=== PATIENT | female | born 1940 | race Caucasian/White ===

== ENCOUNTER 2020-04-12 11:40 | Observation (INO) ==
--- NOTE | 2020-04-12 12:18 | Emergency Department Note ---
History of Present Illness General Chief complaint: Weakness Stated complaint: NUMBNESS ON RIGHT SIDE/WEAKNESS Time Seen by Provider: 04/12/20 11:56 Source: patient and family Mode of arrival: ambulatory Limitations: no limitations History of Present Illness This pa patient comes in by private vehicle after complaining of numbness on her right side. She is very vague about her symptoms about when they started and what symptoms she has now. She seems to be feeling better than she did this morning. She thinks she may have had some symptoms yesterday but really noticed it today between 7 and 8:00 in the morning. She felt numb it seems on her right side on the face and the arm and possibly the leg as well. She has not been ill lately. No fever or chills. No exposure to hardy. No cough or shortness of breath. No nausea vomiting or diarrhea. No fall or trauma. No headache. She is on no blood thinners. She had no trouble speaking or swallowing. Questionable slight vision change in the right eye. She is normally very active and lives independently by herself and came in from home. No palpitations or syncope. Home Medications Home Medications Medication Instructions Recorded Confirmed Type amlodipine 5 mg PO DAILY 04/12/20 04/12/20 History Allergies Allergy/AdvReac Type Severity Reaction Status Date / Time No Known Allergies Allergy Verified 04/12/20 13:00 Past Med/Surg History Medical History (Updated 04/12/20 @ 19:09 by Avila Eckert MD) Hypertension Social History Smoking Status: Never smoker Hx Alcohol Use: No Hx Substance Use: No Preferred Language: Singaporean Communication Ability: Effective Configuration Engineer Required: No Beliefs That Will Affect Care: None Current Living Situation: Alone Other Information That Helps Us Care for You: No Feels Safe at Home: Yes Safety Concerns: Feels Safe At This Time Assistive Devices: None Immunizations: Past medical historydenies diabetes cardiac disease or stroke. No blood thinners. Allergies- denies any allergies Social historylives alone. Does not smoke. Review of Systems A total of 10 systems reviewed and were otherwise negative Physical Exam Vital Signs Vital Signs - 24 hr 04/12/20 11:43 04/12/20 11:47 04/12/20 12:00 Temperature 37.4 C Temperature Source Oral Pulse Rate 78 Pulse Rate [Apical] 78 Pulse Rate from SpO2 Sensor Pulse Rhythm Regular Pulse Rhythm [Apical] Regular Pulse Strength Normal Respiratory Rate 20 16 Respiratory Effort / Characteristics Non-Labored Spontaneous Non-Labored Respiratory Depth Normal Normal Respiratory Pattern Regular Blood Pressure 169/77 H Blood Pressure [Left Arm] 145/84 H Blood Pressure Mean 107 Blood Pressure Mean [Left Arm] 104 Blood Pressure Position [Left Arm] Pulse Oximetry 96 95 96 Oxygen Delivery Method Room Air Room Air Room Air Sepsis Recent Fever Within 48 Hours No Sepsis New/Unexplained Change in Mental Status N/A Sepsis Action Taken by Nursing No Action Required 04/12/20 12:35 04/12/20 12:47 04/12/20 12:49 Temperature Temperature Source Pulse Rate 87 79 83 Pulse Rate [Apical] 79 Pulse Rate from SpO2 Sensor 79 82 Pulse Rhythm Pulse Rhythm [Apical] Regular Pulse Strength Respiratory Rate 20 13 20 Respiratory Effort / Characteristics Non-Labored Spontaneous Respiratory Depth Normal Respiratory Pattern Regular Blood Pressure 143/105 H 162/79 H Blood Pressure [Left Arm] 143/105 H Blood Pressure Mean 111 101 Blood Pressure Mean [Left Arm] 117 Blood Pressure Position [Left Arm] Sitting Pulse Oximetry 97 94 96 Oxygen Delivery Method Room Air Room Air Room Air Sepsis Recent Fever Within 48 Hours Sepsis New/Unexplained Change in Mental Status Sepsis Action Taken by Nursing 04/12/20 13:00 04/12/20 13:15 04/12/20 13:30 Temperature Temperature Source Pulse Rate 81 73 76 Pulse Rate [Apical] Pulse Rate from SpO2 Sensor 80 73 76 Pulse Rhythm Pulse Rhythm [Apical] Pulse Strength Respiratory Rate 19 16 17 Respiratory Effort / Characteristics Respiratory Depth Respiratory Pattern Blood Pressure 148/86 H 150/85 H Blood Pressure [Left Arm] Blood Pressure Mean 101 106 Blood Pressure Mean [Left Arm] Blood Pressure Position [Left Arm] Pulse Oximetry 96 98 98 Oxygen Delivery Method Room Air Room Air Room Air Sepsis Recent Fever Within 48 Hours Sepsis New/Unexplained Change in Mental Status Sepsis Action Taken by Nursing 04/12/20 13:45 04/12/20 14:01 04/12/20 14:15 Temperature Temperature Source Pulse Rate 73 75 74 Pulse Rate [Apical] Pulse Rate from SpO2 Sensor 73 73 74 Pulse Rhythm Pulse Rhythm [Apical] Pulse Strength Respiratory Rate 17 21 15 Respiratory Effort / Characteristics Respiratory Depth Respiratory Pattern Blood Pressure 194/70 H Blood Pressure [Left Arm] Blood Pressure Mean 127 Blood Pressure Mean [Left Arm] Blood Pressure Position [Left Arm] Pulse Oximetry 95 91 95 Oxygen Delivery Method Room Air Room Air Room Air Sepsis Recent Fever Within 48 Hours Sepsis New/Unexplained Change in Mental Status Sepsis Action Taken by Nursing 04/12/20 14:30 04/12/20 14:45 Temperature Temperature Source Pulse Rate 76 75 Pulse Rate [Apical] Pulse Rate from SpO2 Sensor 74 Pulse Rhythm Pulse Rhythm [Apical] Pulse Strength Respiratory Rate 19 16 Respiratory Effort / Characteristics Respiratory Depth Respiratory Pattern Blood Pressure 158/92 H Blood Pressure [Left Arm] Blood Pressure Mean 118 Blood Pressure Mean [Left Arm] Blood Pressure Position [Left Arm] Pulse Oximetry 96 Oxygen Delivery Method Room Air Room Air Sepsis Recent Fever Within 48 Hours Sepsis New/Unexplained Change in Mental Status Sepsis Action Taken by Nursing General: Well developed well nourished older female who appears in no acute distress, breathing comfortably on room air. Normal speech. Alert and orient x3. HEENT: Normal cephalic atraumatic. Pupils are equal round and reactive to light. Extraocular movements are intact. Oropharynx is pink with moist mucous membranes. No swelling of the mouth lips or tongue. Neck: Supple with a midline trachea. No meningeal signs or stiffness, no JVD or bruits. No Stridor. Chest: Clear to auscultation bilaterally. No wheezes or rhonchi. No increased work of breathing. Heart: Regular rate and rhythm without murmurs or gallops. Abdomen: Soft nontender, nondistended without rebound guarding or rigidity. Extremities: No cyanosis clubbing or edema. No calf tenderness or assymetry Spine/Back. Non tender to palpation. No CVA tenderness Skin: Good turgor without rashes. Neurologic exam: Cranial nerves two through 12 are intact. Motor and sensation are intact and symmetrical throughout. Questionable decreased sensation in the right arm compared to the left. She says it feels a little bit different she thinks. The face and leg she says feel the same to light touch. No pronator drift. No tremor. No facial asymmetry or droop. No difficulty speaking or swallowing Course Administered Medications Discontinued Medications Aspirin (Aspirin 81 Mg Chew) 324 mg PO NOW STA Stop: 04/12/20 13:05 Last Admin: 04/12/20 13:34 Dose: 324 mg Documented by: [id number] Ioversol (Optiray 320 125ml) 120 ml IV ONCE ONE Stop: 04/12/20 12:24 Last Admin: 04/12/20 12:23 Dose: 120 ml Documented by: [id number] Medical Decision Making Differential Diagnosis Stroke, TIA, intracranial process, electrolyte or metabolic abnormality, infection, cardiac disease, arrhythmia Medical Records Attestation: I reviewed the patient's medical records. Home Medications Current Medication List: was personally reviewed by me Laboratory Data Attestation: I reviewed the patient's lab results. Result diagrams: 04/12/20 12:15 04/12/20 12:15 Lab Results 04/12/20 04/12/20 04/12/20 Range/Units 12:15 12:15 12:15 WBC 7.19 (4.8-10.8) K/uL RBC 5.27 (4.2-5.4) M/uL Hgb 15.6 (12.0-16.0) g/dL Hct 47.1 H (37-47) % MCV 89.4 (80-100) fL MCH 29.6 (25-34) pg MCHC 33.1 (32-36) g/dL RDW Std Deviation 47.0 H (36.4-46.3) fL RDW Coeff of Shu 14.4 (11.5-14.5) % Plt Count 351 (130-400) K/uL MPV 9.6 (7.4-10.4) fL Immature Gran % (Auto) 0.3 % Neut % (Auto) 74.1 % Lymph % (Auto) 13.5 % [place] % (Auto) 10.4 % Eos % (Auto) 1.3 % Baso % (Auto) 0.4 % Neut # (Auto) 5.33 (1.4-6.5) K/uL Lymph # (Auto) 0.97 L (1.2-3.4) K/uL [place] # (Auto) 0.75 H (0.11-0.59) K/uL Eos # (Auto) 0.09 (0-0.5) K/uL Baso # (Auto) 0.03 (0-0.2) K/uL Immature Gran # (Auto) 0.02 (0.00-0.02) K/uL PT 10.5 (9.0-12.0) Seconds INR 1.0 (0.9-1.1) APTT 27.2 (21.0-31.0) Seconds PTT Ratio 1.0 Sodium 139 (136-145) mmol/L Potassium 4.2 (3.5-5.1) mmol/L Chloride 108 H (98-107) mmol/L Carbon Dioxide 25 (21-32) mmol/L Anion Gap 6.0 (3-11) BUN 13 (7-18) mg/dl Creatinine 0.98 (0.6-1.2) mg/dl Est Cr Clr Drug Dosing 42.8 ml/min Est GFR ( Amer) 63.1 Est GFR (Non-Af Amer) 54.5 BUN/Creatinine Ratio 13.2 (10-20) Glucose 101 H (70-99) mg/dl Calcium 9.6 (8.5-10.1) mg/dl Magnesium 2.4 (1.8-2.4) mg/dl Total Bilirubin 0.6 (0.2-1) mg/dl AST 19 (15-37) U/L ALT 18 (12-78) U/L Alkaline Phosphatase 66 (45-117) U/L Troponin I < 0.015 (0-0.045) ng/ml Total Protein 7.7 (6.4-8.2) gm/dl Albumin 3.7 (3.4-5.0) gm/dl Globulin 4.0 (2.5-4.0) gm/dl Albumin/Globulin Ratio 0.9 (0.9-2) Imaging Data Radiologist's Impression: CT head/brain wo con CLINICAL HISTORY: Stroke evaluation COMPARISON STUDY: No previous studies for comparison. TECHNIQUE: Axial CT of the brain is performed from the vertex to the skull base. IV contrast was not administered for this examination. A dose lowering technique was utilized adhering to the principles of ALARA. CT DOSE: FINDINGS: No intra or extra-axial mass lesions are visualized. There is no CT evidence of acute cortical infarction. There is no evidence of midline shift. There is no acute hemorrhage. No calvarial fractures are visualized. There are patchy white matter hypodensities likely on a small vessel basis. There is no evidence of pathologic ventricular dilatation. There is no evidence of acute sinusitis IMPRESSION: No acute intracranial findings CT angio neck with con CLINICAL HISTORY: 80 years-old Female with Stroke evaluation. Acute strokelike symptoms COMPARISON STUDY: Head CT and CTA head of same day TECHNIQUE: Following the IV administration of 1 20 mL of Optiray 320, CT angiogram of the neck was performed from the aortic arch to the skull base. Images are reviewed in the axial, sagittal, and coronal planes. 3-D MIPS images are created and assessed. IV contrast was administered without complication. All measurements were calculated based on NASCET criteria. A dose lowering t echnique was utilized adhering to the principles of ALARA. FINDINGS: The imaged opacified pulmonary artery is unremarkable. Three-vessel morphology of the thoracic aortic arch. Common and internal carotid arteries are patent. There is minimal mixed plaque of the carotid bulbs. Dominant left vertebral artery. Bilateral vertebral arteries are patent. There is no aneurysm, dissection, high-grade stenosis or proximal branch occlusion. Clear lung apices. No pneumothorax. Multinodular thyroid. No adenopathy. Mild polypoid mucosal thickening of the right maxillary sinus. Multilevel degenerative changes of the spine. Unerupted left maxillary molar. IMPRESSION:Unremarkable CTA of the neck. CT angio head w con CLINICAL HISTORY: Stroke evaluation TECHNIQUE: CT angiography of the head was performed in a dynamic helical fashion during intravenous administration of 120 cc of Optiray 320. MIP imaging was performed. A dose lowering technique was utilized adhering to the principles of ALARA. CT DOSE: 1139.79 mGy.cm COMPARISON STUDY: No previous studies for comparison. FINDINGS: There are no lesion suspicious for aneurysm. There are no major intracranial branch occlusions. The dural venous sinuses appear patent. There is mild narrowing of the distal basilar artery. There are areas of mild vascular narrowing involving the anterior cerebral artery. IMPRESSION: 1. Mild intracranial atherosclerotic change 2. No evidence of major intracranial branch occlusion 3. No evidence of aneurysm ECG Data Attestation: I personally reviewed and interpreted this ECG as follows: Indication: + weakness Rate (beats per minute): 78 Rhythm: + normal sinus ECG Intervals/blocks: + Normal QRS, + Normal QT and + Normal NC ECG [place]: + Normal ECG ST segments: + Normal ST segments ECG Findings: no PACs and no PVCs Comparison ECG Date: no prior available MDM Narrative This patient comes in as described above. She was placed on a monitor technician in room B 11. Based on her symptoms I did call a stroke alert. Her last known well is very vague but it sounds like it was 7 or 8:00 this morning although she seems to be getting better and also had some vague symptoms yesterday. I do not think she is likely a TPA candidate given her mild symptoms now but I wanted to expedite her care in case we saw anything that she could be intervened on otherwise or her symptoms got worse. IV access was established, EKG was obtained, neuroimaging was obtained and she was reassessed frequently. She does seem to have a vision deficit on the right. CAT scan of the head as well as CT of the head and neck were unremarkable. The patient was given aspirin 324 mg chewable. EKG was unremarkable. Blood testing was unremarkable is no significant lecture light or metabolic abnormalities. The stroke neurologist Dr. Elizabeth did evaluate her and does not feel she is a TPA or intervention candidate at this point. The patient will need to be admitted for further stroke work-up as I am concerned that she did have a stroke likely. She will likely need MRI and further work-up. [facility]. Continuous cardiac monitoring: An order was placed in the EMR for continuous cardiac monitoring. She was noted to be in normal sinus rhythm with a pulse of 75. Impression & Plan Stroke-like symptoms, Visual changes, Numbness on right side, Hypertension Discharge Plan Visit Data Chief Complaint: Weakness Stated Complaint: NUMBNESS ON RIGHT SIDE/WEAKNESS ED Provider: Avila Eckert Discharge Problem: Stroke-like symptoms, Visual changes, Numbness on right side, Hypertension Patient Disposition: Admitted As Inpatient Discharge Instructions Interventions: ED Discharge Assessment Last Done: 04/12/20 16:43 Discharge Problem: Hypertension Qualifiers: Hypertension type: unspecified Qualified Code(s): I10 - Essential (primary) hypertension
[2020-04-12] MEDS ORDERED: OPTIRAY 320 125ml IV ONE (12:23)
[2020-04-12 12:28] LABS: Basophils # (auto) 0.03 K/uL (0-0.2); Basophils % (auto) 0.4 %; Eosinophils # (auto) 0.09 K/uL (0-0.5); Eosinophils % (auto) 1.3 %; Hematocrit (blood only) 47.1 % (37-47); Hemoglobin 15.6 g/dL (12.0-16.0); Immature Granulocytes # (auto) 0.02 K/uL (0.00-0.02); Immature Granulocytes % (auto) 0.3 %; Lymphocytes # (auto) 0.97 K/uL (1.2-3.4); Lymphocytes % (auto) 13.5 %; Mean Corpuscular Hemoglobin 29.6 pg (25-34); Mean Corpuscular Hgb Conc 33.1 g/dL (32-36); Mean Corpuscular Volume 89.4 fL (80-100); Mean Platelet Volume 9.6 fL (7.4-10.4); Monocytes # (auto) 0.75 K/uL (0.11-0.59); Monocytes % (auto) 10.4 %; Neutrophils # (auto) 5.33 K/uL (1.4-6.5); Neutrophils % (auto) 74.1 %; Platelet Count 351 K/uL (130-400); RDW Coefficient of Variation 14.4 % (11.5-14.5); Red Blood Count 5.27 M/uL (4.2-5.4); White Blood Count 7.19 K/uL (4.8-10.8)
--- NOTE | 2020-04-12 12:36 | CT Scan Report ---
CT head/brain wo con CLINICAL HISTORY: Stroke evaluation COMPARISON STUDY: No previous studies for comparison. TECHNIQUE: Axial CT of the brain is performed from the vertex to the skull base. IV contrast was not administered for this examination. A dose lowering technique was utilized adhering to the principles of ALARA. CT DOSE: FINDINGS: No intra or extra-axial mass lesions are visualized. There is no CT evidence of acute cortical infarc tion. There is no evidence of midline shift. There is no acute hemorrhage. No calvarial fractures ar e visualized. There are patchy white matter hypodensities likely on a small vessel basis. There is no evidence of pathologic ventricular dilatation. There is no evidence of acute sinusitis IMPRESSION: No acute intracranial findings ACT 112: Negative or not required by law. Electronically signed by: Bassam Hodges M.D. 04/12/2020 12:35 PM
--- NOTE | 2020-04-12 12:42 | CT Scan Report ---
CT angio head w con CLINICAL HISTORY: Stroke evaluation TECHNIQUE: CT angiography of the head was performed in a dynamic helical fashion during intravenous a dministration of 120 cc of Optiray 320. MIP imaging was performed. A dose lowering technique was util ized adhering to the principles of ALARA. CT DOSE: 1139.79 mGy.cm COMPARISON STUDY: No previous studies for comparison. FINDINGS: There are no lesion suspicious for aneurysm. There are no major intracranial branch occlusi ons. The dural venous sinuses appear patent. There is mild narrowing of the distal basilar artery. Th ere are areas of mild vascular narrowing involving the anterior cerebral artery. IMPRESSION: 1. Mild intracranial atherosclerotic change 2. No evidence of major intracranial branch occlusion 3. No evidence of aneurysm ACT 112: Negative or not required by law. Electronically signed by: Bassam Hodges M.D. 04/12/2020 12:40 PM
--- NOTE | 2020-04-12 12:42 | CT Scan Report ---
CT angio neck with con CLINICAL HISTORY: 80 years-old Female with Stroke evaluation. Acute strokelike symptoms COMPARISON STUDY: Head CT and CTA head of same day TECHNIQUE: Following the IV administration of 1 20 mL of Optiray 320, CT angiogram of the neck was pe rformed from the aortic arch to the skull base. Images are reviewed in the axial, sagittal, and coron al planes. 3-D MIPS images are created and assessed. IV contrast was administered without complicatio n. All measurements were calculated based on NASCET criteria. A dose lowering technique was utilized adhering to the principles of ALARA. FINDINGS: The imaged opacified pulmonary artery is unremarkable. Three-vessel morphology of the thoracic aortic arch. Common and internal carotid arteries are patent. There is minimal mixed plaque of the carotid bulbs. Dominant left vertebral artery. Bilateral vertebral arteries are patent. There is no aneurysm, dissection, high-grade stenosis or proximal branch occlusion. Clear lung apices. No pneumothorax. Multinodular thyroid. No adenopathy. Mild polypoid mucosal thicke rodrigo of the right maxillary sinus. Multilevel degenerative changes of the spine. Unerupted left maxil jamir molar. IMPRESSION:Unremarkable CTA of the neck. ACT 112: Negative or not required by law. The above report was generated using voice recognition software. It may contain grammatical, syntax o r spelling errors. Electronically signed by: Kp Colón M.D. 04/12/2020 12:40 PM
[2020-04-12 12:45] LABS: Partial Thromboplastin Time 27.2 Seconds (21.0-31.0); Prothrombin Time 10.5 Seconds (9.0-12.0)
[2020-04-12 12:51] LABS: Alanine Aminotransferase 18 U/L (12-78); Albumin Level 3.7 gm/dl (3.4-5.0); Aspartate Aminotransferase 19 U/L (15-37); BUN Creatinine Ratio 13.2 (10-20); Blood Urea Nitrogen 13 mg/dl (7-18); Calcium 9.6 mg/dl (8.5-10.1); Carbon Dioxide 25 mmol/L (21-32); Chloride 108 mmol/L (98-107); Creatinine Clr Calc Pharmacy 42.8 ml/min; Est GFR (African American) 63.1; Est GFR (Non-African American) 54.5; Glucose 101 mg/dl (70-99); Magnesium 2.4 mg/dl (1.8-2.4); Potassium 4.2 mmol/L (3.5-5.1); Sodium 139 mmol/L (136-145)
[2020-04-12 12:57] LABS: Albumin Globulin Ratio 0.9 (0.9-2); Alkaline Phosphatase 66 U/L (45-117); Bilirubin,Total 0.6 mg/dl (0.2-1); Total Protein 7.7 gm/dl (6.4-8.2); Troponin I < 0.015 ng/ml (0-0.045)
[2020-04-12] MEDS ORDERED: ASPIRIN 81 MG CHEW PO STA (13:04)
--- NOTE | 2020-04-12 14:23 | History & Physical Report ---
Date of Service April 12, 2020 Assessment & Plan (1) Right homonymous hemianopsia: Stroke work-up Observation status on telemetry to monitor for atrial fibrillation CT head and CTA results as above MRI brain wo contrast TTE Allow permissive hypertension (discontinue amlodipine 5mg PO daily) ASA 324mg PO daily, then 81mg PO daily Given advanced age will defer statin based on MRI and lipid panel results in AM. PT/OT eval and treat Consult neurology (2) Right sided numbness: Now resolved. As above. (3) Hypertension: Hold outpatient amlodipine to allow permissive hypertension as above. (4) DVT prophylaxis: Lovenox 40mg SQ daily Admission and Anticipated Discharge Date Admission Date: 04/12/2020 History of Present Illness Chief Complaint: Right sided weakness, numbness, vision loss. Primary Care Provider: NO PCP Julianne Rodas is an 80 year old female who presents to the ER with right sided numbness, weakness and vision changes. She finds it very difficult to tell me why she came to the ER today. Here with her brother who does not live with her. Her main complaint is "just doesn't feel right". On direct questioning it a ppears she last felt her normal self two days ago. Yesterday she felt something was right but it wasn't bad but is unable to specify what was wrong even on direct questioning. She denies at that point having any nausea, vomiting, pain, dizziness, numbness, weakness, fatigue, vision/speech/hearing changes. Today on waking up she thinks she felt the right side of her body was numb. This started in her hand and she reports long standing carpel tunnel syndrome but this was worse than usual. This numbness then spread to her right leg and face lasting for minutes up to an hour. She reports this has now completely resolved. Possibly she also had some weakness on her right side although she cannot be sure about this. Unable to give any specific times when this occurred. She reports right sided vision loss with her above symptoms but this is slowly improving since coming to the ER. She has never had a stroke before. She reports seeing a PCP approximately 1 month ago due to high BP measurements at home and she was started on a new antihypertensive (amlodipine per outside pharmacy records). She reports feeling worse after taking it, possibly dizzy although unable to describe the actual feeling, therefore stopped taking it after a few days. She started taking it again ?2 weeks ago and the same thing happened so she stopped taking it again. In the ER because of her vague symptoms yesterday and visual deficit she was discussed with telestroke at [facility] and felt not to be a tPA or intervention candidate. Her right sided weakness and numbness had resolved. She was referred to medicine for admission for suspected CVA. Allergies Allergy/AdvReac Type Severity Reaction Status Date / Time No Known Allergies Allergy Verified 04/12/20 13:00 Home Medications Home Medications Medication Instructions Recorded Confirmed Type amlodipine 5 mg PO DAILY 04/12/20 04/12/20 History Past Med/Surg History Medical History Hypertension Surgical History (Updated 04/13/20 @ 08:46 by Kennedy Haro MD) S/P tonsillectomy Status post endoscopic carpal tunnel release Family History (Updated 04/13/20 @ 08:47 by Kennedy Haro MD) Mother , age 83 of a stroke Stroke Diabetes Father , age 72 "black lung" Lung disease Social History Smoking Status: Never smoker Hx Alcohol Use: No Hx Substance Use: No Preferred Language: Hungarian Communication Ability: Effective Admissions Clinician Required: No Beliefs That Will Affect Care: None Current Living Situation: Alone current occupational status: retired Other Information That Helps Us Care for You: No other: 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 Feels Safe at Home: Yes Safety Concerns: Feels Safe At This Time Assistive Devices: None Review of Systems Review of Systems: All systems reviewed & are unremarkable except as noted in HPI & below Physical Exam Constitutional: well developed and well nourished; no acute distress Eyes: PERRL, conjunctivae normal, anicteric sclerae + abnormal visual field confrontation (Complete right sided vision loss with both eyes) ENMT: external ear and nose normal, oropharynx normal Neck: trachea midline, no thyromegaly Respiratory: normal respiratory effort, lungs clear to auscultation Cardiovascular: RRR, no murmur, no edema Gastrointestinal (Abdomen): normal bowel sounds, soft, nontender, no hepatosplenomegaly Musculoskeletal: no cyanosis or clubbing, extremities motor strength 5/5 Skin: no rashes, warm and dry Neurologic: moves all extremities and awake Speech / Cognition: normal speech Motor/Sensory: + pronator drift (very mild right upper extremity increased movement); no tremor and no sensory deficit Cranial Nerves: PERRL (visual carver as above), EOM intact bilaterally, normal facial strength, tongue midline, able to rotate head bilaterally, able to elevate shoulders bilaterally, no nystagmus and symmetric palate elevation Psychiatric: A+Ox3, euthymic affect Lymphatic: no cervical or axillary lymphadenopathy Results & Data Results & Data ([facility]) Vital Signs (Past 12 Hours) Vital Signs Temp Pulse Pulse Resp BP BP Pulse Ox 04/12/20 14:01 75 21 194/70 H 91 04/12/20 13:45 73 17 95 04/12/20 13:30 76 17 150/85 H 98 04/12/20 13:15 73 16 98 04/12/20 13:00 81 19 148/86 H 96 04/12/20 12:49 83 20 96 04/12/20 12:47 79 13 162/79 H 94 04/12/20 12:35 87 79 20 143/105 H 143/105 H 97 04/12/20 12:00 78 16 145/84 H 96 04/12/20 11:47 95 04/12/20 11:43 37.4 C 78 20 169/[address] head/brain wo con IMPRESSION: No acute intracranial findings CT angio head w con IMPRESSION: 1. Mild intracranial atherosclerotic change 2. No evidence of major intracranial branch occlusion 3. No evidence of aneurysm CT angio neck with con IMPRESSION:Unremarkable CTA of the neck. ECG Indication: other (Suspected CVA) Rate (beats per minute): 78 Rhythm: normal sinus Findings: + other (T wave flattening in inferior leads) Comparison ECG Date: no prior available Code Status & VTE Plan Code Status DNR/DNI as discussed with the patient VTE Prophylaxis Plan VTE Prophylaxis will be ordered: Yes PG Care Time/CCT Total # of Minutes Spent Total Time Spent with Patient: Total time spent is greater than 50% in coordination of care (as documented) at patient's floor/unit and/or counseling patient: Coding Level of Care Code 44110 OBS Care - Level 3 Diagnoses Right homonymous hemianopsia H53.461 Right sided numbness R20.0 Hypertension I10 DVT prophylaxis Z29.9
--- NOTE | 2020-04-12 14:37 | Electrocardiogram Report ---
Test Reason : Blood Pressure : / mmHG Vent. Rate : 078 BPM Atrial Rate : 078 BPM P-R Int : 154 ms QRS Dur : 086 ms QT Int : 396 ms P-R-T Axes : 034 033 003 degrees QTc Int : 451 ms Normal sinus rhythm Nonspecific ST and T wave abnormality Inferior leads Abnormal ECG No previous ECGs available Confirmed by Junaid Hernández ([id number]) on 04/12/2020 2:37:03 PM Referred By: Johanna Confirmed By:Junaid Hernández
[2020-04-12] MEDS ORDERED: ONDANSETRON INJ 2 MG/ML 2 ML VIAL IV PRN (17:17)
[2020-04-12] MEDS ORDERED: ALUMINUM/MAGNESIUM SUSP 30 ML UDC PO PRN (17:17)
[2020-04-12] MEDS ORDERED: ACETAMINOPHEN 325 MG TAB PO PRN (17:17)
[2020-04-12] MEDS ORDERED: POLYETHYLENE (MIRALAX) 17 GM PACK PO PRN (17:17)
[2020-04-12] MEDS ORDERED: PHARMACIST DISCHARGE MED REC CONSULT PRN (17:17)
--- NOTE | 2020-04-12 19:22 | Magnetic Resonance Report ---
MRI OF THE BRAIN WITHOUT IV CONTRAST CLINICAL HISTORY: Right homonymous hemianopsia. Right facial numbness. COMPARISON STUDY: CT of the brain dated 04/12/2020. TECHNIQUE: MRI of the brain was performed utilizing various T1 and T2-weighted sequences in the axial , sagittal, and coronal planes. IV contrast was not administered for this examination. FINDINGS: Brain parenchyma: There is restricted diffusion identified in the left occipital cortex consistent wi th acute to subacute ischemia. There are also small foci of restricted diffusion in the left thalamus and the posterior limb of the left internal capsule consistent with acute to subacute lacunar infarc ts. There is age-related involutional change noting [id number] subcortical and periventricular microangiopathic disease. There is no hemorrhage or mass effect. No extra-axial fluid collection is s een. The cerebellar tonsils are normal in configuration. Ventricles, sulci, and cisterns: Prominent secondary to involutional change. Pituitary and sella: Unremarkable. Intracranial vasculature: Normal flow voids are maintained at the skull base. Orbits: The bony orbits are grossly intact. Orbital contents are normal in appearance. Sinuses and mastoids: Mild mucosal thickening is noted in the right maxillary antrum. The remaining p aranasal sinuses and the mastoid air cells are clear. Calvarium: Unremarkable. Cervical cord: Partially visualized cervical spinal cord is normal in morphology and signal intensity . IMPRESSION: 1. There is an acute to subacute left occipital lobe infarct, as well as acute to subacute lacunar in farcts within the left thalamus and the posterior limb of the left internal capsule. 2. There is no hemorrhage or mass effect. ACT 112: Negative or not required by law. Electronically signed by: Trenton Henson M.D. 04/12/2020 7:20 PM
[2020-04-12] MEDS ORDERED: ENOXAPARIN INJ 40 MG/0.4 ML SYR SQ SCH (21:00)
--- NOTE | 2020-04-13 08:17 | XCELERA ---
[id number]
--- NOTE | 2020-04-13 08:44 | Hospitalist Progress Note ---
Date of Service April 13, 2020 Assessment & Plan Admission and Anticipated Discharge Date Admission Date: April 12, 2020 Results & Data Results & Data ([facility]) Vital Signs (Past 12 Hours) Vital Signs Temp Pulse Pulse Resp BP BP Pulse Ox 04/13/20 07:54 36.9 C 56 L 16 154/78 H 94 04/13/20 07:41 64 04/13/20 03:57 36.9 C 69 20 114/61 96 04/13/20 01:27 72 04/12/20 23:05 36.7 C 74 20 153/76 H 94
--- NOTE | 2020-04-13 08:56 | Neurology Consultation ---
Date of Consultation April 13, 2020 Assessment & Plan (1) Acute CVA (cerebrovascular accident): (2) Right sided numbness: (3) Right homonymous hemianopsia: (4) Memory loss, short term: patient had several acute tiny strokes, in the left thalamus, left posterior limb of the internal capsule, and a slightly bigger 1 in the left occipital pole. On presentation she had some right-sided sensory deficits (mostly subjective) and a right homonymous hemianopsia. Today on examination she has no evidence of homonymous hemianopsia, sensory deficit, motor deficit or other focal neurologic finding. She has no meningeal signs or encephalopathy. She does have some mild short-term memory loss , which has been noted as an outpatient. Risk factors for stroke include hypertension and age. she has no history of atrial fibrillation/Flutter. Last night she had a 7 second run of atrial tac hycardia. Echocardiogram was unremarkable. CT angiography of the head and neck were unremarkable without any significant stenoses. She has a dominant left vertebral. The etiology of the stroke is probably embolic given the different vascular distributions. An ischemic stroke cannot be excluded (Given her dominant left vertebral, if she had an episode of hypotension or hypoperfusion this could lead to stroke). Recommendations: 1. Consider further cardiac evaluation for source of embolus including SHANNON. Cardiac event monitor could be considered as well. 2. Increase activity as able and consider physical, occupational, speech therapy consult. 3. the patient needs fasting lipid profile and hemoglobin A1c. 4. Control blood pressure as you are doing, aiming for a mean arterial pressure of 95-100. 5. For now, continue 81 milligram aspirin tablet daily. Consider anticoagulant if there is a source of embolus identified. Overall, I spent a total of 100 minutes with this case including review of records, review of CT and MRI films ( with Dr. Colón), direct evaluation patient at bedside, and discussing the case with the patient at bedside, and Dr. Hernandez including differential diagnosis and treatment options. History of Present Illness Reason for Consultation: Patient is an 80-year-old, who I was asked to see at the request of Dr. Dash, for neurologic consultation regarding stroke. Requesting Physician: Dr. Dash Attending Physician: Toi Hernandez, History of Present Illness patient has a history of hypertension on amlodipine. She has no history of diabetes, dyslipidemia, cardiac disease, or stroke. Patient has primary care visits recently which have suggested some short-term memory problems. Sometime on April 11 she had a relatively brief episode of lightheadedness and really could not give any more specific details regarding this. She did not have pain, weakness, or numbness. She went to bed that evening around 10 o'clock feeling fairly well. She woke up, as usual, around 5 o'clock in the morning feeling her baseline. Sometime later in the morning she had the onset of dysesthesias with numbness and tingling (pins/needles) on her right face, right side, and right leg. These again were very vague and she denied weakness or pain. She had no headache. She did not notice any vision problem. She had no incontinence or urine her balance problems and her mood has been fine. She feels her memory has been fine. She went to the emergency room because of the dysesthesias and not feeling quite well. She arrived to the emergency room at 11:43 with a temperature 37.4, pulse 78, blood pressure 169/77, and O2 saturation 96 percent. Exam reveals some decreased sensation on the right side compared to. Was no mention vision deficits. She was given Lovenox and aspirin. CBC and Chem profile were unremarkable. CT scan of the head was unremarkable. CT angiography of head and neck unremarkable with no significant vascular anomalies or stenoses. MRI of the brain showed a very small /tiny left thalamic and left posterior internal capsule strokes. In addition there was a centimeter sized left o ccipital pole stroke. The strokes were acute /subacute nature. The MRI also showed plom-gx-qwkrduzz old small vessel ischemic changes. Today she says she has no vision problems but still has some vague dysesthesias on the right. She has no pain or weakness. Allergies Allergy/AdvReac Type Severity Reaction Status Date / Time No Known Allergies Allergy Verified 04/12/20 13:00 Home Medications Home Medications Medication Instructions Recorded Confirmed Type amlodipine 5 mg PO DAILY 04/12/20 04/12/20 History Patient History Medical History Hypertension Surgical History S/P tonsillectomy Status post endoscopic carpal tunnel release Family History Mother , age 83 of a stroke Stroke Diabetes Father , age 72 "black lung" Lung disease Social History Smoking Status: Never smoker Hx Alcohol Use: No Hx Substance Use: No Preferred Language: Swedish Communication Ability: Effective Security System Administrator Required: No Beliefs That Will Affect Care: None Current Living Situation: Alone current occupational status: retired Other Information That Helps Us Care for You: No other: retired in her late 30s from working in a [employer] Feels Safe at Home: Yes Safety Concerns: Feels Safe At This Time Assistive Devices: None Review of Systems Constitutional: no fever, no fatigue and no weakness Eyes: no diplopia, no eye pain and no worsening vision Ear, Nose, Mouth, Throat: no ear pain, no tinnitus, no hearing loss, no dizziness, no hoarseness and no dysphagia Respiratory: no cough and no dyspnea Cardiovascular: no chest pain, no palpitations and no lightheadedness Gastrointestinal: no abdominal pain, no nausea and no vomiting Genitourinary: no dysuria, no urinary frequency and no urinary incontinence Musculoskeletal: no back pain, no neck pain, no radicular pain, no joint pain and no myalgia Integumentary: no rash and no lesions Neurologic: + tingling; no gait abnormality, no localized weakness, no generalized weakness, no numbness, no tremor(s), no abnormal movements, no headache(s), no abnormal speech, no confusion and no memory loss Psychiatric: no depression, no irritability, no anxiety, no difficulty concentrating, no confusion and no hallucinations Endocrine: no fatigue and no flushing Hematologic / Lymphatic: no easy bleeding and no easy bruising Allergy / Immunological: no urticaria and no problem reported Exam (Neuro) Physical Exam: The patient is right-handed. The patient is awake, alert, and attentive. Speech is normal without any aphasia or dysarthria. She can name objects, repeat phrases, and has normal spontaneous speech. Mentation and thought processes are intact, with orientation to person, place and time, and normal fund of knowledge. Attention and concentration are normal. Mood and affect are normal and appropriate. General appearance and grooming are normal. her short-term memory was somewhat poor. Her long-term memory was relatively intact. The discs are sharp with positive venous pulsations bilaterally. There are no exudates, hemorrhages, or blood vessel changes seen. Pupils are 4 mm bilaterally and reactive to light. Extraocular eye muscles are intact without nystagmus. Visual acuity and visual carver seem normal grossly to confrontation. I did not detect any visual field defect bilaterally. There are no deficits to sensation in the face in all 3 distributions of the fifth cranial nerve bilaterally. Corneal reflexes are positive bilaterally. Facial strength and symmetry was normal bilaterally. Hearing seems mildly impaired. Palate moves well without asymmetry. There is normal sternocleidomastoid and trapezius (shoulder shrug) strength bilaterally. Tongue is midline with good strength bilaterally. Neck has a full range of motion without discomfort. There are no cervical bruits bilaterally. There are no cranial or ocular bruits. Heart is without murmur. There is a regular rhythm and rate. Cervical, thoracic, and lumbar spine are nontender to palpation. Gait is narrow based, with good arm swing, turns, and stance. Balance is normal eyes open or closed. With outstretched arms there is no drift. There are no resting, postural, or action tremors. There is no ataxia with finger to nose testing. There is good facility in the hands. No other abnormal involuntary movements are noted. Motor strength is 5/5 diffusely in the arms bilaterally including deltoids, biceps, triceps, brachioradialis, wrist flexors and extensors, gi technician, and intrinsic hand muscles. Motor strength is 5/5 diffusely in the legs bilaterally including hip flexors, quadriceps, hamstrings, gastrocnemius, tibialis anterior, tibialis posterior, and Peroneii muscles. Toe extensors are normal and there is good bulk in the extensor digitorum brevis muscles bilaterally. The limbs have good tone without rigidity or spasticity. There is no atrophy noted in the muscles. Muscle bulk is normal, there is no tenderness to palpation, no myotonia to percussion, and no fasciculations seen. Sensory examination is intact to touch and pin throughout all 4 limbs diffusely. Reflexes are 0/4 in the biceps, triceps, brachioradialis, quadriceps, and Achilles tendons bilaterally ( despite reinforcement maneuvers). There is no clonus bilaterally. Toes are downgoing with plantar stimulation bilaterally. Peripheral pulses are present and of normal quality distally in all 4 limbs. There is no peripheral edema noted in the limbs. Results & Data ([facility]) Vital Signs (Past 12 Hours) Vital Signs Temp Pulse Pulse Resp BP BP Pulse Ox 04/13/20 07:54 36.9 C 56 L 16 154/78 H 94 04/13/20 07:41 64 04/13/20 03:57 36.9 C 69 20 114/61 96 04/13/20 01:27 72 04/12/20 23:05 36.7 C 74 20 153/76 H 94 PG Care Time/CCT Total # of Minutes Spent Total Time Spent with Patient: Total time spent is greater than 50% in coordination of care (as documented) at patient's floor/unit and/or counseling patient: Coding Level of Care Code 98183 Initial Inpt Care Lvl 3 Diagnoses Acute CVA (cerebrovascular accident) I63.9 Right sided numbness R20.0 Right homonymous hemianopsia H53.461 Memory loss, short term R41.3 Time Spent (min) 100 Comment Add [id number] to the [id number]
[2020-04-13] MEDS ORDERED: ASPIRIN 81 MG ECTAB PO SCH (09:00)
[2020-04-13 09:21] LABS: Basophils # (auto) 0.04 K/uL (0-0.2); Basophils % (auto) 0.8 %; Eosinophils # (auto) 0.13 K/uL (0-0.5); Eosinophils % (auto) 2.6 %; Hematocrit (blood only) 47.8 % (37-47); Hemoglobin 15.4 g/dL (12.0-16.0); Immature Granulocytes # (auto) 0.01 K/uL (0.00-0.02); Immature Granulocytes % (auto) 0.2 %; Lymphocytes # (auto) 1.03 K/uL (1.2-3.4); Lymphocytes % (auto) 20.5 %; Mean Corpuscular Hemoglobin 29.4 pg (25-34); Mean Corpuscular Hgb Conc 32.2 g/dL (32-36); Mean Corpuscular Volume 91.2 fL (80-100); Monocytes # (auto) 0.42 K/uL (0.11-0.59); Monocytes % (auto) 8.3 %; Neutrophils % (auto) 67.6 %; Platelet Count 367 K/uL (130-400); RDW Coefficient of Variation 14.5 % (11.5-14.5); RDW Standard Deviation 49.1 fL (36.4-46.3); Red Blood Count 5.24 M/uL (4.2-5.4); White Blood Count 5.03 K/uL (4.8-10.8)
[2020-04-13 09:54] LABS: BUN Creatinine Ratio 14.8 (10-20); Calcium 9.4 mg/dl (8.5-10.1); Creatinine Clr Calc Pharmacy 42.4 ml/min; Est GFR (African American) 64.7; Est GFR (Non-African American) 55.9; Potassium 3.7 mmol/L (3.5-5.1)
[2020-04-13 11:06] LABS: Estimated Average Glucose 108 mg/dl; Hemoglobin A1C 5.4 % (4.5-5.6)
[2020-04-13] MEDS ORDERED: STROKE PATIENT DISCHARGE STA (15:38)
--- NOTE | 2020-04-13 15:57 | Pharmacy Report ---
Pharmacist Stroke Counseling - Date of Service April 13, 2020 - Scope: Pharmacy has been consulted to provide medication discharge counseling for this patient admitted with CVA as per the Pharmacist Discharge Counseling for Stroke Patients Protocol. - Medications on Discharge: Home Medications Medication Instructions Recorded Confirmed amlodipine 5 mg PO DAILY 04/12/20 04/12/20 New Rx's Medication Instructions Recorded aspirin 81 mg PO QAM 30 Days #30 tab 04/13/20 atorvastatin 40 mg PO DAILY #30 tab 04/13/20 - Action: The above medications, specifically ones for stroke treatment/prophylaxis, have been reviewed in detail with the patient prior to discharge. This includes indication, common adverse reactions, drug interactions, and medication administration. Medication counseling has been employed using the teach-back method to ensure understanding. - Outcome: The patient demonstrated understanding of the medications. Additional comments: - counseling was completed via telephone secondary to the COVID-19 pandemic - patient was given an opportunity to have any/all questions answered Thank you for allowing pharmacy to be involved in the care of this patient. Please call [phone] with any additional questions
--- NOTE | 2020-04-13 17:42 | Discharge Summary ---
Date of Service April 13, 2020 Admission HPI Per Admitting Provider Julianne Rodas is an 80 year old female who presents to the ER with right sided numbness, weakness and vision changes. She finds it very difficult to tell me why she came to the ER today. Here with her brother who does not live with her. Her main complaint is "just doesn't feel right". On direct questioning it appears she last felt her normal self two days ago. Yesterday she felt something was right but it wasn't bad but is unable to specify what was wrong even on direct questioning. She denies at that point having any nausea, vomiting, pain, dizziness, numbness, weakness, fatigue, vision/speech/hearing changes. Today on waking up she thinks she felt the right side of her body was numb. This started in her hand and she reports long standing carpel tunnel syndrome but this was worse than usual. This numbness then spread to her right leg and face lasting for minutes up to an hour. She reports this has now completely resolved. Possibly she also had some weakness on her right side although she cannot be s ure about this. Unable to give any specific times when this occurred. She reports right sided vision loss with her above symptoms but this is slowly improving since coming to the ER. She has never had a stroke before. She reports seeing a PCP approximately 1 month ago due to high BP measurements at home and she was started on a new antihypertensive (amlodipine per outside pharmacy records). She reports feeling worse after taking it, possibly dizzy although unable to describe the actual feeling, therefore stopped taking it after a few days. She started taking it again ?2 weeks ago and the same thing happened so she stopped taking it again. In the ER because of her vague symptoms yesterday and visual deficit she was discussed with telestroke at [facility] [place] and felt not to be a tPA or intervention candidate. Her right sided weakness and numbness had resolved. She was referred to medicine for admission for suspected CVA. Admission Exam Per Admitting Provider Constitutional: well developed and well nourished; no acute distress Eyes: PERRL, conjunctivae normal, anicteric sclerae + abnormal visual field confrontation (Complete right sided vision loss with both eyes) ENMT: external ear and nose normal, oropharynx normal Neck: trachea midline, no thyromegaly Respiratory: normal respiratory effort, lungs clear to auscultation Cardiovascular: RRR, no murmur, no edema Gastrointestinal (Abdomen): normal bowel sounds, soft, nontender, no hepatosplenomegaly Musculoskeletal: no cyanosis or clubbing, extremities motor strength 5/5 Skin: no rashes, warm and dry Neurologic: moves all extremities and awake Speech / Cognition: normal speech Motor/Sensory: + pronator drift (very mild right upper extremity increased movement); no tremor and no sensory deficit Cranial Nerves: PERRL (visual carver as above), EOM intact bilaterally, normal facial strength, tongue midline, able to rotate head bilaterally, able to elevate shoulders bilaterally, no nystagmus and symmetric palate elevation Psychiatric: A+Ox3, euthymic affect Lymphatic: no cervical or axillary lymphadenopathy Principal Diagnosis Stroke Discharge Exam Constitutional WD/WN, vitals as above Eyes PERRL, conjunctivae normal, anicteric sclerae Neck trachea midline, no thyromegaly Respiratory normal respiratory effort, lungs clear to auscultation Cardiovascular RRR, no murmur, no edema Gastrointestinal (Abdomen) normal bowel sounds, soft, nontender, no hepatosplenomegaly Musculoskeletal no cyanosis or clubbing, extremities motor strength 5/5 Neurologic PERRL, EOMI, accommodation nl, no face palsy, no dysarthria awake; not confused Motor/Sensory: no tremor and normal movement Coordination: normal [id number] test Psychiatric A+Ox3, euthymic affect Discharge Data Allergies Allergy/AdvReac Type Severity Reaction Status Date / Time No Known Allergies Allergy Verified 04/12/20 13:00 Consultations 04/12/20 13:38 ED Decision to Admit Stat 04/12/20 17:17 Consult Case Management - Discharge Planning Routine Consult Neurology Routine Ordered Studies 04/12/20 12:11 CT angio head w con Stat CT angio neck with con Stat CT head/brain wo con Stat 04/12/20 17:17 MR brain wo con Urgent Hospital Course (1) Acute CVA (cerebrovascular accident): Patient is an 80 year old female with PMHx hypertension who presented initially with concerns of R sided numbness, weakness, and vision changes. CVA -With initial R sided numbness, R homonymous hemianopsia, Memory loss -CT negative for acute bleed -MRI noted several acute tiny strokes in the L thalamus, L posterior limb of the internal capsule, and L occipital pole. -Patient was not a candidate for intervention of TPA on admission, though a stroke alert was called to hasten patients evaluation appropriately -Symptoms of CVA mostly resolved at time of evaluation in the AM -Neurology consulted -[place] that etiology likely embolic given the different vascular distributions, though ischemic stroke could not be excluded. -Continue ASA 81mg daily -Started on Atorvastatin 40mg daily -TTE negative for PFO, though with concerns for embolic nature of stroke, patient discharged home with a Heart Monitor x2 weeks. -Patient to follow up with PCP and Neurology after discharge. Total Time Total Time Spent Total Time Spent (In Minutes): <30 Discharge Plan Discharge Items Patient Disposition: Home - Self-Care Reason For Visit: RIGHT HOMONYMOUS HEMIANOPSIA Discharge Diagnosis: Acute CVA Activity: Per Instructions section Non-emergency contact: Primary Care Provider Call non-emergency contact if: you have any medication questions and your symptoms worsen Follow-up/Referrals: PCP,NO [Primary Care Provider] - Diet: Regular Addtl Attending Provider Instructions: Clark, It was our pleasure caring for you at [facility] from 04/12/20 - 04/13/20 for your stroke. Please continue taking a baby aspirin, 81mg everyday at home. We are also starting you on a new medication called atorvastatin 40mg. Please take one daily. Continue with home health services and physical therapy while at home as they help you during this time after your stroke. We also noticed some abnormal heartbeats during your stay here. We ordered a heart event monitor for you to wear for the next 2 weeks to continue to monitor your heart. We ask that you follow up with your primary care provider to go over the results to determine what the next steps are based on what they see on the monitor. We ask that you follow-up with your primary care provider in the next week after discharge so that they can see how you're doing after discharge and ensure that you are on the right medications, and give you re-fills as needed. We also ask that you follow-up with Neurology as directed. Again, it was our pleasure taking care of you during your stay here! Pending Studies at Discharge: No Stand-Alone Forms: My [facility] Aviate, Smoking Cessation Medications and DC Order Prescriptions: New aspirin 81 mg Tablet,Delayed Release (Dr/Ec) 81 mg PO QAM 30 Days Qty: 30 RF: 0 atorvastatin 40 mg tablet 40 mg PO DAILY Qty: 30 RF: 0 Continued amlodipine 5 mg tablet 5 mg PO DAILY RF: 0 Discharge Orders: Discharge Order (Routine); Ordered 04/13/20 Ordered By: Rama Mabry Admission Data Admit Date/Time: 04/12/20 19:37 Attending Provider: Toi Hernandez Admit Provider: Leonard Dash Primary Care Provider: PCP,NO Other Providers: Leonard Dash ; Kennedy Cox ; Marilee,[facility] Other Interventions: Discharge Summary Assessment (RN) Last Done: 04/13/20 15:16 Supervising Physician Co-Signing Physician Notes I personally examined the patient and verified all yanez points of history and exam, discussed case, and agree with decision making with Dr Vanessa. case also d/w dr cox. pt feeling totally better and wants to go home. discussed stroke - possible central embolic - and need for farm equipment engine mechanic to eval for afib. neuro does not feel anticoagulation warranted without a clear embolic source. vitals noted nad heent nc at mmm breathing unlabored no accessory muscles good effort skin no rashes no pallor or icterus neuro no focal deficits grossly noted see neuro exam for more detail CVA - MRI suggests embolic. no large vessel source noted on CTA. nothing noted on echo - but concern would be PAF. farm equipment engine mechanic set up for home. for now asa, atorvastatin. if afib/cardioembolic source clearly found, then would change asa for anticoaguation, and benefit of atorvastatin would be more questionable -- ongoing issues for f/u w PCP. stable for home. Resident Activity Tracking Resident Involvement: Resident Care Provided Care Provided: Adult Hospital Medicine
--- NOTE | 2020-04-13 20:08 | Billing Data ---
Date of Service April 13, 2020 Coding Level of Care Code 79148 OBS Care - Discharge
== END 2020-04-13 16:14 | disposition home or self-care (01) ==
LOC: 2N 11:40 → ED 11:40 → 2N 16:43 → SUATTDRO 19:37